=== PATIENT | male | born 1995 | race Hispanic/Latino ===

== ENCOUNTER 2018-11-22 19:10 | Emergency (ER) | payer OTHER ==
[2018-11-22] MEDS ORDERED: IBUPROFEN 600 MG TABLET ONE (20:50)
== END 2018-11-22 21:19 | disposition home or self-care (01) ==
LOC: EDH 19:10
DX: S39.012A Strain of muscle, fascia and tendon of lower back, initial encounter (principal); X58.XXXA Exposure to other specified factors, initial encounter; Y93.89 Activity, other specified; Y92.89 Other specified places as the place of occurrence of the external cause; Y99.8 Other external cause status
CPT/HCPCS: 72100